=== PATIENT | male | born 1955 | race Asian ===

== ENCOUNTER 2022-03-04 22:11 | Emergency (ER) | payer OTHER ==
[2022-03-04 23:12] LABS: #Basophils 0.1 thou/uL (0.0-0.2); #Eosinphils 0.3 thou/uL (0.0-0.7); #Lymphocytes 1.9 thou/uL (1.20-3.40); #Monocytes 0.7 thou/uL (0.11-0.59); %Basophils 1.4 % (0.0-1.0); %Eosinophils 2.6 % (0.0-10.0); %Lymphocytes 19.3 % (21.0-51.0); %Monocytes 6.9 % (0.0-10.0); %Neutrophils 69.9 % (42.0-75.0); Hemoglobin 13.9 g/dL (12.0-16.0); Mean Corpuscular Hemoglobin 30.9 pg (27.0-31.0); Mean Corpuscular Volume 93.4 fL (78.0-98.0); Platelet Count 255 thou/uL (130-400); RBC Distribution Width 13.5 % (11.5-14.5); Red Blood Cell (RBC) Count 4.49 mill/uL (4.20-5.40); White Blood Cell (WBC) Count 10.1 thou/uL (4.8-10.8)
[2022-03-04] MEDS ORDERED: Orphenadrine Citrate 60 MG/2 ML VIAL ONE (23:14)
[2022-03-04] MEDS ORDERED: Labetalol HCl 100 MG/20 ML VIAL ONE (23:14)
[2022-03-04 23:37] LABS: Anion Gap 14 mmol/L (10-20); BUN (Urea Nitrogen) 13 mg/dL (9.8-20.1); Calc. Creatinine Clearance 0 mL/min (70-130); Calcium 9.9 mg/dL (7.8-10.44); Carbon Dioxide 24 mmol/L (23-31); Chloride 102 mmol/L (98-107); Estimated GFR 42; Glucose 418 mg/dL (80-115); Potassium 4.7 mmol/L (3.5-5.1); Sodium 135 mmol/L (136-145)
[2022-03-05] MEDS ORDERED: Ketorolac Tromethamine 30 MG/ML VIAL ONE (00:07)
[2022-03-05] MEDS ORDERED: Sodium Chloride 0.9% 1,000 ML ONE (00:07)
[2022-03-05] MEDS ORDERED: HYDROcodone/Acetaminophen 5/325 mg Tablet ONE (01:07)
[2022-03-05] MEDS ORDERED: hydrALAZINE 10 MG TAB ONE (07:37)
[2022-03-05] MEDS ORDERED: Insulin Regular 300 UNITS/3 ML VIAL ONE (07:37)
== END 2022-03-05 08:50 | disposition home or self-care (01) ==
LOC: MADERS 22:11 → EDSEX 22:11 → MADERS 03-05 08:50
DX: I11.0 Hypertensive heart disease with heart failure (principal); I50.9 Heart failure, unspecified; M79.10 Myalgia, unspecified site; S01.01XD Laceration without foreign body of scalp, subsequent encounter; E11.65 Type 2 diabetes mellitus with hyperglycemia; Z79.84 Long term (current) use of oral hypoglycemic drugs; I25.10 Atherosclerotic heart disease of native coronary artery without angina pectoris; Z79.899 Other long term (current) drug therapy; Z79.82 Long term (current) use of aspirin; Z79.02 Long term (current) use of antithrombotics/antiplatelets; W01.11 Fall on same level from slipping, tripping and stumbling with subsequent striking against sharp object
CPT/HCPCS: 70450; 71045; 72125; 80048; 85025; 96361; 96365; 96375; J1815; J1885; J2360; J7050